=== PATIENT | female | born 2000 | race Caucasian/White ===

== ENCOUNTER → 2019-09-09 14:24 | Outpatient (BNVA) | payer SELFPAY | PROVIDERS: Family Provider Registered Nurse; Visit Provider Counselor Professional | DX: F41.1 Generalized anxiety disorder; Z63.4 Disappearance and death of family member | CPT/HCPCS: 90834 ==

== ENCOUNTER → 2019-09-29 14:48 | Outpatient (BNVA) | payer OTHER, SELFPAY | PROVIDERS: Family Provider Registered Nurse; PCP Family Medicine; Visit Provider Counselor Professional | DX: F43.10 Post-traumatic stress disorder, unspecified (principal); F41.1 Generalized anxiety disorder | CPT/HCPCS: 90834 ==